=== PATIENT | male | born 1995 | race Caucasian/White ===

== ENCOUNTER 2020-07-23 19:10 | Emergency (ER) | payer MEDICAID ==
[~2020-07-23] VITALS: Ht 175.3 cm; Wt 70.0 kg
[2020-07-23] MEDS ORDERED: IBUP-2028 MT (20:53)
[2020-07-23] MEDS ORDERED: IBUPROFEN 600MG TABLET PO ONE (21:00)
[2020-07-23 21:31] VITALS: BP 120/71
== END 2020-07-23 21:32 | disposition home or self-care (01) ==
LOC: ER 19:10
DX: R51.9 Headache, unspecified (principal); F31.9 Bipolar disorder, unspecified; F41.9 Anxiety disorder, unspecified
CPT/HCPCS: 99282